=== PATIENT | male | born 1990 | race Caucasian/White ===

== ENCOUNTER 2016-11-16 20:37 | Emergency (ER) | payer OTHER ==
[~2016-11-16] VITALS: Ht 175.3 cm; Wt 110.0 kg
[~2016-11-16 20:37] MED LIST: Z.0.NO CURRENT MEDS
[2016-11-16 20:40] VITALS: BP 111/73; PULSE 65; RESP 16; TEMP 97.9; O2SAT 97
--- NOTE | 2016-11-16 21:14 | PD ---
HPI Chief Complaint: Injury Time Seen by Provider: 21:03 Travel History International Travel<30 days: No Contact w/Intl Traveler<30days: No Traveled to known affect area: No History of Present Illness HPI 26 year old male presents for evaluation of a puncture wound to the plantar aspect of the right foot. He reports a prior to arrival he was taking trash out and he stepped on a yoon nail. The nail went through his sandals. He removed the nail. He now has a puncture wound to the plantar aspect of the right forefoot. Minimal pain. Denies any numbness tingling or range of motion limitation. Last tetanus vaccination greater than 5 years. No other complaints at this time. PFSH Past Medical History Autoimmune Disease: No Blood Disorders: No Anxiety: No Depression: No Cardiovascular Problems: No Gastrointestinal Disorders: No Genitourinary: No Heparin Induced Thrombocytopen: No Musculoskeletal: No Neurologic: No Psychiatric: No Respiratory: No Immunizations Current: Yes Tetanus Vaccination: Unknown Influenza Vaccination: No Past Surgical History Abdominal Surgery: Yes (pyloric stenosis 1989) Body Medical Devices: mouth deformity Oral Surgery: Yes (JAW REALIGNED) Tonsillectomy: Yes Other Surgery: Yes (PYLORIC STENOSIS) Social History Alcohol Use: Yes (RARELY) Tobacco Use: No Substance Use: No Allergies-Medications (Allergen,Severity, Reaction): Coded Allergies: Ancef (Verified Allergy, Unknown, UNKNOWN, 11/16/16) Morphine (Verified Allergy, Unknown, hives, 11/16/16) Codeine (Verified Adverse Reaction, Mild, N/V, 11/16/16) Reported Meds & Prescriptions Reported Meds & Active Scripts Active Ciprofloxacin (Ciprofloxacin HCl) 500 Mg Tab 500 Mg PO BID 3 Days Review of Systems Musculoskeletal: No: Limited ROM Skin: Positive Other (puncture wound, minimal pain) Physical Exam Narrative GENERAL: Well-developed well-nourished male in no acute distress SKIN: Warm and dry. There is a small puncture wound on the plantar aspect of the right forefoot. There is old blood dried on the foot. No active bleeding. Minimal discomfort with palpation of the puncture wound. No palpable foreign bodies. Extremities: Skin as noted above. Full range of motion of the toes and the right foot. Distal sensation and pulses are preserved. Data Data Last Documented VS Vital Signs Date Time Temp Pulse Resp B/P Pulse Ox O2 Delivery O2 Flow Rate FiO2 11/16/16 20:59 16 11/16/16 20:40 97.9 65 111/73 97 Orders Foot, Limited (2vws) (11/16/16 ) Tetanus/Diphtheria Tox Adult (Tetanus/Di (11/16/16 21:15) Ciprofloxacin (Cipro) (11/16/16 21:15) MDM Medical Decision Making Medical Screen Exam Complete: Yes Emergency Medical Condition: Yes Medical Record Reviewed: Yes Interpretation(s) Foot x-ray unremarkable Differential Diagnosis Puncture wound, foreign body, open fracture Narrative Course 26-year-old male presents for evaluation of a puncture wound from a yoon nail through his sandals on the plantar aspect of the right foot. Limited x-rays been performed. Tetanus status updated. The plan is to place the patient on prophylactic ciprofloxacin for the next 3 days. Discussed signs and symptoms that would represent infection that would warrant return to the emergency room. Diagnosis Primary Impression: Puncture wound of foot Qualified Code: S91.331A - Puncture wound of foot, right, initial encounter Additional Instructions: Take antibiotics as prescribed. Wash the wound daily with soap and water. Watch for signs of infection such as increasing redness around the wound, red streaks up the leg, fevers. Med/Other Pt SpecificInfo: Prescription(s) given, Wound Care Scripts Ciprofloxacin 500 Mg Pso441 Mg PO BID 3 Days Ref 0 Prov:Ira Roa DO 11/16/16 Disposition: 01 DISCHARGE HOME Condition: Stable Chung Rushing Nov 16, 2016 21:14
[2016-11-16] MEDS ORDERED: TETANUS/DIPHTHERIA TOXOID ADULT 0.5 ML VIAL IM ONE (21:15)
[2016-11-16] MEDS ORDERED: CIPR500T2 PO (21:15)
[2016-11-16] MEDS ORDERED: CIPROFLOXACIN 500 MG TAB PO ONE (21:15)
--- NOTE | 2016-11-16 21:49 | RADRPT ---
EXAM DATE/TIME: 11/16/2016 21:31 [facility] COMPARISON: No previous studies available for comparison. INDICATIONS : Right foot pain after stepping on a nail. MEDICAL HISTORY : None. SURGICAL HISTORY : None. ENCOUNTER: Initial ACUITY: 1 day PAIN SCORE: 1/10 LOCATION: Right foot, under the fourth digit, on the plantar surface of the foot. FINDINGS: Two view examination of the right foot demonstrates no soft tissue swelling, dislocation, or fracture . The calcaneus is intact. Bony mineralization is normal. CONCLUSION: Unremarkable limited examination of the right foot. Elan Jang MD on November 16, 2016 at 21:47 Board Certified Radiologist. This report was verified electronically.
== END 2016-11-16 22:22 | disposition home or self-care (01) ==
LOC: NEPB 20:37
DX: S91.339A Puncture wound without foreign body, unspecified foot, initial encounter (principal); Z23 Encounter for immunization; W45.0XXA Nail entering through skin, initial encounter; Y93.89 Activity, other specified; Y92.89 Other specified places as the place of occurrence of the external cause; Y99.8 Other external cause status
CPT/HCPCS: 73620; 90471; 90714